=== PATIENT | male | born 1945 | race Caucasian/White ===

== ENCOUNTER 2016-10-15 21:41 | Inpatient (IN) | payer MEDICARE ==
[~2016-10-15] VITALS: Ht 188 cm; Wt 89.8 kg
[2016-10-15 21:41] VITALS: BP_SYST 98
[2016-10-15] MEDS ORDERED: NACL 0.9% 1,000 ML IV SCH ×3 (21:46→22:51)
[2016-10-15 22:15] LABS: BASOPHILS # (AUTO) 0.1 K/uL (0.0-0.2); BASOPHILS % (AUTO) 0.7 % (0.0-2.0); EOSINOPHILS # (AUTO) 0.3 K/uL (0.0-0.4); EOSINOPHILS % (AUTO) 2.5 % (0.0-4.0); HEMOGLOBIN 8.8 g/dL (14.0-18.0); LYMPHOCYTES # (AUTO) 2.5 K/uL (1.0-5.5); LYMPHOCYTES % (AUTO) 20.7 % (20.5-51.5); MEAN CORPUSCULAR HEMOGLOBIN 29 pg (27-31); MEAN CORPUSCULAR HGB CONC 30 % (32-36); MEAN CORPUSCULAR VOLUME 95 fL (79.0-98.0); MONOCYTES # (AUTO) 1.3 K/uL (0.0-1.0); MONOCYTES % (AUTO) 10.8 % (1.7-9.3); NEUTROPHILS # (AUTO) 7.8 K/uL (1.8-7.7); NEUTROPHILS % (AUTO) 65.3 % (40.0-70.0); PLATELET COUNT (AUTO) 164 K/uL (130-430); RED BLOOD CELL COUNT(AUTO) 3.04 MIL/uL (4.2-6.2); RED CELL DISTRIBUTION WIDTH 19.8 % (9.0-15.0)
[2016-10-15] MEDS ORDERED: ONDANSETRON HCL 4 MG/2 ML VIAL IVP ONE (22:15)
[2016-10-15 22:25] LABS: ANION GAP 6 (5-15); CALCIUM 7.8 mg/dL (8.4-11.0); CHLORIDE 105 mmol/L (98-107); CREATININE 3.85 mg/dL (0.55-1.30); GLUCOSE 164 mg/dL (70-99); POTASSIUM 4.7 mmol/L (3.5-5.1); SODIUM SERUM 141 mmol/L (136-145); UREA NITROGEN, BLOOD 26 mg/dL (8-21)
[2016-10-15 22:45] LABS: INR 1.3 (0.80-1.20); PROTHROMBIN TIME 14.6 SECS (9.5-12.5)
[2016-10-15 22:46] LABS: ALANINE AMINOTRANSFERASE 14 U/L (12-78); ALBUMIN 1.9 g/dL (3.4-4.8); ASPARTATE AMINOTRANSFERASE 27 U/L (10-37); TOTAL BILIRUBIN 1.3 mg/dL (0.0-1.0)
[2016-10-15] MEDS ORDERED: LIP40 PO (22:48)
[2016-10-15] MEDS ORDERED: SERT50TA12 PO (22:48)
[2016-10-15] MEDS ORDERED: LORA-258 PO (22:48)
[2016-10-15] MEDS ORDERED: LOSA50TA3 PO (22:48)
[2016-10-15] MEDS ORDERED: ALLO100T PO (22:48)
[2016-10-15] MEDS ORDERED: FURO-149 PO (22:48)
[2016-10-15] MEDS ORDERED: METO25TA6 PO (22:48)
[2016-10-15] MEDS ORDERED: CALC0.258 PO (22:48)
[2016-10-15] MEDS ORDERED: [UNRECOGNIZED DRUG - CODE] PO (22:50)
[2016-10-15] MEDS ORDERED: FAMO20TA8 PO (22:50)
[2016-10-15] MEDS ORDERED: ASPI-1063 PO (22:51)
[2016-10-15] MEDS ORDERED: NOREPINEPHRINE BITARTRATE IV ONE (23:30)
[2016-10-15] MEDS ORDERED: NS IV ONE (23:30)
[2016-10-15] MEDS ORDERED: NOREPINEPHRINE 4 MG/4 ML VIAL IV ONE (23:43)
[2016-10-16] VITALS (27 sets, daily range): BP systolic 62–137
[2016-10-16] MEDS ORDERED: PANTOPRAZOLE SODIUM 40 MG/VIAL (PROTONIX) IVP ONE
[2016-10-16] MEDS ORDERED: PANTOPRAZOLE SODIUM 40 MG/VIAL (PROTONIX) ONE ×3 (00:06→04:56)
[2016-10-16] MEDS ORDERED: PANTOPRAZOLE SODIUM 40 MG in NS 50 ML IV SCH ×4 (01:00→04:30)
[2016-10-16 01:24] LABS: BASOPHILS # (AUTO) 0.2 K/uL (0.0-0.2); BASOPHILS % (AUTO) 1.1 % (0.0-2.0); EOSINOPHILS # (AUTO) 0.2 K/uL (0.0-0.4); EOSINOPHILS % (AUTO) 1.6 % (0.0-4.0); HEMATOCRIT 29.6 % (36-54); HEMOGLOBIN 9.1 g/dL (14.0-18.0); LYMPHOCYTES # (AUTO) 3.1 K/uL (1.0-5.5); LYMPHOCYTES % (AUTO) 22.4 % (20.5-51.5); MEAN CORPUSCULAR HEMOGLOBIN 30 pg (27-31); MEAN CORPUSCULAR HGB CONC 31 % (32-36); MEAN CORPUSCULAR VOLUME 96 fL (79.0-98.0); MONOCYTES # (AUTO) 1.4 K/uL (0.0-1.0); NEUTROPHILS # (AUTO) 8.9 K/uL (1.8-7.7); NEUTROPHILS % (AUTO) 64.9 % (40.0-70.0); PLATELET COUNT (AUTO) 177 K/uL (130-430); RED BLOOD CELL COUNT(AUTO) 3.09 MIL/uL (4.2-6.2); RED CELL DISTRIBUTION WIDTH 20.2 % (9.0-15.0); WHITE BLOOD COUNT (AUTO) 13.8 K/uL (4.8-10.8)
[2016-10-16] MEDS ORDERED: DIPHENHYDRAMINE INJ 50 MG/ML VIAL IVP PRN (01:30)
[2016-10-16] MEDS ORDERED: ACETAMINOPHEN 325 MG TABLET PO PRN (01:30)
[2016-10-16] MEDS ORDERED: LEVOFLOXACIN 500 MG/D5W 100 ML IV ONE ×2 (01:45→02:25)
[2016-10-16] MEDS ORDERED: VANCOMYCIN HCL 1 GM/NS PREMIX 250 ML IV ONE (01:45)
[2016-10-16] MEDS ORDERED: VANCOMYCIN HCL 1000 MG/VIAL IV ONE (02:25)
[2016-10-16] MEDS: INSULIN REGULAR, HUMAN 100 UNITS/ML, 10 ML VIAL (novoLIN R) SUBCUT PRN ×4 (06:40→21:15)
[2016-10-16] MEDS ORDERED: DEXTROSE 50%-WATER 50 ML DISP.SYRIN IVP PRN (06:45)
[2016-10-16] MEDS ORDERED: GLUCOSE 15 GM GEL (in 37.5 GM TUBE) PO PRN ×2 (06:45)
[2016-10-16] MEDS ORDERED: NOREPINEPHRINE 4 MG/4 ML VIAL IV ONE (07:10)
[2016-10-16] MEDS: METOPROLOL TARTRATE 25 MG TABLET PO SCH ×2 (09:00→20:19)
[2016-10-16] MEDS: PANTOPRAZOLE SODIUM 40 MG in NS 50 ML IV SCH ×4 (09:08→20:20)
[2016-10-16] MEDS: ATORVASTATIN 20 MG TABLET PO SCH (09:10)
[2016-10-16] MEDS: FUROSEMIDE 40 MG TABLET PO SCH (09:13)
[2016-10-16] MEDS: SERTRALINE HCL 50 MG TABLET PO SCH (09:14)
[2016-10-16] MEDS: ALLOPURINOL 100 MG TABLET (ZYLOPRIM) PO SCH (09:14)
[2016-10-16 09:15] LABS: HEMATOCRIT 30.9 % (36-54); HEMOGLOBIN 9.4 g/dL (14.0-18.0); MEAN CORPUSCULAR HEMOGLOBIN 30 pg (27-31); MEAN CORPUSCULAR HGB CONC 31 % (32-36); MEAN CORPUSCULAR VOLUME 97 fL (79.0-98.0); PLATELET COUNT (AUTO) 208 K/uL (130-430); RED BLOOD CELL COUNT(AUTO) 3.18 MIL/uL (4.2-6.2); RED CELL DISTRIBUTION WIDTH 20.1 % (9.0-15.0)
[2016-10-16 09:23] LABS: ANION GAP 14 (5-15); CALCIUM 8.3 mg/dL (8.4-11.0); CHLORIDE 103 mmol/L (98-107); CREATININE 4.19 mg/dL (0.55-1.30); GLUCOSE 191 mg/dL (70-99); PHOSPHORUS 5.2 mg/dL (2.7-4.5); POTASSIUM 5.6 mmol/L (3.5-5.1); SODIUM SERUM 138 mmol/L (136-145); UREA NITROGEN, BLOOD 38 mg/dL (8-21)
[2016-10-16] MEDS ORDERED: FUROSEMIDE 40 MG/4 ML VIAL IVP ONE (10:45)
[2016-10-16 10:57] LABS: ATYPICAL LYMPHOCYTES % 0 % (0-0); BAND % (MANUAL) 0 % (0-6); BASOPHILS % (MANUAL) 0 % (0-2); EOSINOPHILS % (MANUAL) 0 % (0-7); LYMPHOCYTES % (MANUAL) 27 % (20-46); MONOCYTES % (MANUAL) 12 % (0-11)
[2016-10-16] MEDS: NOREPINEPHRINE BITARTRATE 8 MG in NS 242 ML IV PRN ×2 (12:10→19:41)
[2016-10-16] MEDS: CEFEPIME 1 GM in D5W 50 ML IV SCH (13:49)
[2016-10-16] MEDS: ALBUTEROL SULFATE 0.083% 2.5 MG/3 ML VIAL.NEB INH SCH ×3 (14:25→23:25)
[2016-10-16] MEDS ORDERED: ALBUMIN HUMAN 25% 100 ML IV ONE ×2 (14:30→14:45)
[2016-10-16] MEDS ORDERED: HEPARIN SODIUM, PORCINE 10,000 UNITS/ 10 ML VIAL MC ONE (16:30)
[2016-10-16] MEDS: VANCOMYCIN HCL 1,250 MG in NS 250 ML IV SCH (17:45)
[2016-10-16] MEDS: FLUCONAZOLE 200 mg/ NS 100 ML IV SCH (18:49)
[2016-10-16] MEDS ORDERED: EPOETIN ALFA 10,000 UNITS/ML VIAL IVP ONE (19:00)
[2016-10-16] MEDS: TEMAZEPAM 7.5 MG CAPSULE PO PRN (21:07)
[2016-10-16] MEDS: CALCITRIOL 0.25 MCG CAPSULE PO SCH (22:43)
[2016-10-17] VITALS (25 sets, daily range): BP systolic 80–126
[2016-10-17] MEDS: ALBUTEROL SULFATE 0.083% 2.5 MG/3 ML VIAL.NEB INH SCH ×6 (03:00→22:54)
[2016-10-17] MEDS: NOREPINEPHRINE BITARTRATE 8 MG in NS 242 ML IV PRN ×4 (03:54→14:22)
[2016-10-17] MEDS: PANTOPRAZOLE SODIUM 40 MG in NS 50 ML IV SCH ×5 (03:55→23:51)
[2016-10-17 05:12] LABS: HEPATITIS B SURFACE AG Negative (Negative); HEPATITIS C VIRUS AB <0.1 s/co ratio (0.0-0.9)
[2016-10-17] MEDS: INSULIN REGULAR, HUMAN 100 UNITS/ML, 10 ML VIAL (novoLIN R) SUBCUT PRN ×3 (06:14→20:28)
[2016-10-17 06:26] LABS: BASOPHILS # (AUTO) 0.1 K/uL (0.0-0.2); EOSINOPHILS # (AUTO) 0.1 K/uL (0.0-0.4); EOSINOPHILS % (AUTO) 0.7 % (0.0-4.0); HEMATOCRIT 26.1 % (36-54); HEMOGLOBIN 7.8 g/dL (14.0-18.0); LYMPHOCYTES # (AUTO) 3.2 K/uL (1.0-5.5); LYMPHOCYTES % (AUTO) 25.4 % (20.5-51.5); MEAN CORPUSCULAR HEMOGLOBIN 29 pg (27-31); MEAN CORPUSCULAR HGB CONC 30 % (32-36); MEAN CORPUSCULAR VOLUME 97 fL (79.0-98.0); MONOCYTES # (AUTO) 1.9 K/uL (0.0-1.0); MONOCYTES % (AUTO) 15.1 % (1.7-9.3); NEUTROPHILS # (AUTO) 7.1 K/uL (1.8-7.7); NEUTROPHILS % (AUTO) 57.8 % (40.0-70.0); PLATELET COUNT (AUTO) 207 K/uL (130-430); RED BLOOD CELL COUNT(AUTO) 2.71 MIL/uL (4.2-6.2); RED CELL DISTRIBUTION WIDTH 20.8 % (9.0-15.0); WHITE BLOOD COUNT (AUTO) 12.4 K/uL (4.8-10.8)
[2016-10-17 06:56] LABS: ANION GAP 15 (5-15); CALCIUM 8.3 mg/dL (8.4-11.0); CHLORIDE 103 mmol/L (98-107); CREATININE 3.69 mg/dL (0.55-1.30); GLUCOSE 228 mg/dL (70-99); POTASSIUM 3.9 mmol/L (3.5-5.1); SODIUM SERUM 141 mmol/L (136-145); UREA NITROGEN, BLOOD 33 mg/dL (8-21)
[2016-10-17 07:27] LABS: ALANINE AMINOTRANSFERASE 38 U/L (12-78); ALBUMIN 2.8 g/dL (3.4-4.8); ASPARTATE AMINOTRANSFERASE 136 U/L (10-37); TOTAL BILIRUBIN 1.6 mg/dL (0.0-1.0)
[2016-10-17] MEDS: ALLOPURINOL 100 MG TABLET (ZYLOPRIM) PO SCH (08:49)
[2016-10-17] MEDS: ATORVASTATIN 20 MG TABLET PO SCH (08:49)
[2016-10-17] MEDS: CALCITRIOL 0.25 MCG CAPSULE PO SCH (08:49)
[2016-10-17] MEDS: FUROSEMIDE 40 MG TABLET PO SCH (08:50)
[2016-10-17] MEDS: METOPROLOL TARTRATE 25 MG TABLET PO SCH ×2 (08:51→20:21)
[2016-10-17] MEDS: SERTRALINE HCL 50 MG TABLET PO SCH (08:54)
[2016-10-17] MEDS: CEFEPIME 1 GM in D5W 50 ML IV SCH (11:54)
[2016-10-17] MEDS ORDERED: PANTOPRAZOLE SODIUM 80 MG in NS 100 ML IV ONE (12:15)
[2016-10-17] MEDS ORDERED: OCTREOTIDE ACETATE 50 MCG/ML AMP IVP ONE (12:15)
[2016-10-17] MEDS: OCTREOTIDE ACETATE 1,250 MCG in NS 250 ML IV SCH (13:09)
[2016-10-17] MEDS: LORazepam 1 MG TABLET PO PRN (14:14)
[2016-10-17] MEDS ORDERED: ALBUMIN HUMAN 25% 100 ML IV ONE ×2 (15:00→16:00)
[2016-10-17] MEDS: FLUCONAZOLE 200 mg/ NS 100 ML IV SCH (19:59)
[2016-10-17] MEDS: TEMAZEPAM 7.5 MG CAPSULE PO PRN (23:52)
[2016-10-18] VITALS (24 sets, daily range): BP systolic 79–127
[2016-10-18] MEDS: NOREPINEPHRINE BITARTRATE 8 MG in NS 242 ML IV PRN ×3 (02:12→22:10)
[2016-10-18] MEDS: ALBUTEROL SULFATE 0.083% 2.5 MG/3 ML VIAL.NEB INH SCH ×6 (02:23→23:17)
[2016-10-18] MEDS: PANTOPRAZOLE SODIUM 40 MG in NS 50 ML IV SCH ×5 (05:48→19:45)
[2016-10-18 06:36] LABS: BASOPHILS # (AUTO) 0.1 K/uL (0.0-0.2); BASOPHILS % (AUTO) 0.7 % (0.0-2.0); EOSINOPHILS # (AUTO) 0.2 K/uL (0.0-0.4); EOSINOPHILS % (AUTO) 1.5 % (0.0-4.0); HEMATOCRIT 29.5 % (36-54); HEMOGLOBIN 9.4 g/dL (14.0-18.0); LYMPHOCYTES # (AUTO) 2.3 K/uL (1.0-5.5); MEAN CORPUSCULAR HEMOGLOBIN 30 pg (27-31); MEAN CORPUSCULAR HGB CONC 32 % (32-36); MEAN CORPUSCULAR VOLUME 94 fL (79.0-98.0); MONOCYTES # (AUTO) 1.3 K/uL (0.0-1.0); MONOCYTES % (AUTO) 10.7 % (1.7-9.3); NEUTROPHILS # (AUTO) 8.7 K/uL (1.8-7.7); NEUTROPHILS % (AUTO) 69.1 % (40.0-70.0); PLATELET COUNT (AUTO) 159 K/uL (130-430); RED BLOOD CELL COUNT(AUTO) 3.15 MIL/uL (4.2-6.2); RED CELL DISTRIBUTION WIDTH 20.3 % (9.0-15.0); WHITE BLOOD COUNT (AUTO) 12.6 K/uL (4.8-10.8)
[2016-10-18 07:03] LABS: ALANINE AMINOTRANSFERASE 94 U/L (12-78); ALBUMIN 3.4 g/dL (3.4-4.8); ANION GAP 13 (5-15); ASPARTATE AMINOTRANSFERASE 232 U/L (10-37); CALCIUM 9.3 mg/dL (8.4-11.0); CHLORIDE 102 mmol/L (98-107); CREATININE 3.21 mg/dL (0.55-1.30); GLUCOSE 188 mg/dL (70-99); POTASSIUM 3.3 mmol/L (3.5-5.1); SODIUM SERUM 140 mmol/L (136-145); TOTAL BILIRUBIN 2.6 mg/dL (0.0-1.0); UREA NITROGEN, BLOOD 27 mg/dL (8-21)
[2016-10-18] MEDS: CALCITRIOL 0.25 MCG CAPSULE PO SCH (08:40)
[2016-10-18] MEDS: ALLOPURINOL 100 MG TABLET (ZYLOPRIM) PO SCH (08:41)
[2016-10-18] MEDS: LORazepam 1 MG TABLET PO PRN (08:41)
[2016-10-18] MEDS: ATORVASTATIN 20 MG TABLET PO SCH (08:42)
[2016-10-18] MEDS: SERTRALINE HCL 50 MG TABLET PO SCH (08:42)
[2016-10-18] MEDS ORDERED: DIATR MEGLU/DIATRIZ SOD 30 ML SOLUTION PO ONE (08:44)
[2016-10-18] MEDS: FUROSEMIDE 40 MG TABLET PO SCH (08:44)
[2016-10-18] MEDS: METOPROLOL TARTRATE 25 MG TABLET PO SCH ×2 (08:45→21:00)
[2016-10-18] MEDS ORDERED: FUROSEMIDE 40 MG/4 ML VIAL IVP ONE (11:30)
[2016-10-18] MEDS ORDERED: PROMETHAZINE 6.25 MG/ CODEINE 10 MG/ 5 ML PO PRN (11:30)
[2016-10-18] MEDS: INSULIN REGULAR, HUMAN 100 UNITS/ML, 10 ML VIAL (novoLIN R) SUBCUT PRN ×3 (11:45→20:53)
[2016-10-18] MEDS: PIPERACILLIN/TAZO 2.25G/DEX-IS 50 ML IV SCH ×3 (11:50→23:56)
[2016-10-18] MEDS: OCTREOTIDE ACETATE 1,250 MCG in NS 250 ML IV SCH (11:50)
[2016-10-18] MEDS: BALSAM PERU/CASTOR OIL 60 GM OINT...G. TP SCH (15:22)
[2016-10-18] MEDS: VANCOMYCIN HCL 1,250 MG in NS 250 ML IV SCH (16:56)
[2016-10-18] MEDS: FLUCONAZOLE 200 mg/ NS 100 ML IV SCH (18:38)
[2016-10-19] VITALS (41 sets, daily range): BP systolic 59–114
[2016-10-19] MEDS: PANTOPRAZOLE SODIUM 40 MG in NS 50 ML IV SCH ×5 (00:25→19:51)
[2016-10-19] MEDS: ALBUTEROL SULFATE 0.083% 2.5 MG/3 ML VIAL.NEB INH SCH ×6 (02:25→23:28)
[2016-10-19] MEDS: PIPERACILLIN/TAZO 2.25G/DEX-IS 50 ML IV SCH ×3 (05:49→19:28)
[2016-10-19 06:27] LABS: INR 2.1 (0.80-1.20); PROTHROMBIN TIME 23.7 SECS (9.5-12.5)
[2016-10-19] MEDS: NOREPINEPHRINE BITARTRATE 8 MG in NS 242 ML IV PRN ×2 (06:33→11:49)
[2016-10-19 06:37] LABS: BASOPHILS # (AUTO) 0.1 K/uL (0.0-0.2); BASOPHILS % (AUTO) 0.5 % (0.0-2.0); EOSINOPHILS # (AUTO) 0.2 K/uL (0.0-0.4); EOSINOPHILS % (AUTO) 1.2 % (0.0-4.0); HEMATOCRIT 30.7 % (36-54); HEMOGLOBIN 9.5 g/dL (14.0-18.0); LYMPHOCYTES # (AUTO) 2.8 K/uL (1.0-5.5); LYMPHOCYTES % (AUTO) 19.2 % (20.5-51.5); MEAN CORPUSCULAR HEMOGLOBIN 30 pg (27-31); MEAN CORPUSCULAR HGB CONC 31 % (32-36); MEAN CORPUSCULAR VOLUME 96 fL (79.0-98.0); MONOCYTES # (AUTO) 1.6 K/uL (0.0-1.0); MONOCYTES % (AUTO) 11.2 % (1.7-9.3); NEUTROPHILS # (AUTO) 9.6 K/uL (1.8-7.7); NEUTROPHILS % (AUTO) 67.9 % (40.0-70.0); PLATELET COUNT (AUTO) 142 K/uL (130-430); RED BLOOD CELL COUNT(AUTO) 3.21 MIL/uL (4.2-6.2); RED CELL DISTRIBUTION WIDTH 21.1 % (9.0-15.0)
[2016-10-19 06:53] LABS: ALANINE AMINOTRANSFERASE 131 U/L (12-78); ALBUMIN 3.1 g/dL (3.4-4.8); ANION GAP 16 (5-15); ASPARTATE AMINOTRANSFERASE 275 U/L (10-37); CHLORIDE 102 mmol/L (98-107); CREATININE 4.22 mg/dL (0.55-1.30); GLUCOSE 169 mg/dL (70-99); POTASSIUM 3.5 mmol/L (3.5-5.1); SODIUM SERUM 139 mmol/L (136-145); TOTAL BILIRUBIN 2.9 mg/dL (0.0-1.0); UREA NITROGEN, BLOOD 38 mg/dL (8-21)
[2016-10-19 07:00] LABS: WHITE BLOOD COUNT (AUTO) 14.3 K/uL (4.8-10.8)
[2016-10-19] MEDS: ALLOPURINOL 100 MG TABLET (ZYLOPRIM) PO SCH (09:00)
[2016-10-19] MEDS: SERTRALINE HCL 50 MG TABLET PO SCH (09:00)
[2016-10-19] MEDS: FUROSEMIDE 40 MG TABLET PO SCH (09:00)
[2016-10-19] MEDS: METOPROLOL TARTRATE 25 MG TABLET PO SCH ×2 (09:00→21:13)
[2016-10-19] MEDS: ATORVASTATIN 20 MG TABLET PO SCH (09:00)
[2016-10-19] MEDS: CALCITRIOL 0.25 MCG CAPSULE PO SCH (09:00)
[2016-10-19] MEDS ORDERED: ALBUMIN HUMAN 25% 200 ML IV ONE (09:30)
[2016-10-19] MEDS ORDERED: DOPamine PREMIX 250 ML IV PRN (12:00)
[2016-10-19] MEDS ORDERED: DOPamine PREMIX 250 ML IV ONE ×2 (12:11→16:34)
[2016-10-19] MEDS ORDERED: SUCCINYLCHOLINE CHLORIDE 20 MG/ML(QUELICIN) IVP ONE (14:42)
[2016-10-19] MEDS ORDERED: ETOMIDATE 20 MG/ 10 ML VIAL (AMIDATE) IVP ONE (14:42)
[2016-10-19] MEDS ORDERED: PHYTONADIONE 10 MG/ML AMP SUBCUT ONE (14:45)
[2016-10-19] MEDS ORDERED: LIDOCAINE 2%, 20 ML MDV ONE (15:29)
[2016-10-19] MEDS ORDERED: NOREPINEPHRINE BITARTRATE 8 MG in NS 242 ML IV PRN (15:30)
[2016-10-19] MEDS ORDERED: NOREPINEPHRINE BITARTRATE 16 MG in NS 234 ML IV PRN (15:30)
[2016-10-19] MEDS ORDERED: COMMUNICATION ORDER XX ONE (15:45)
[2016-10-19] MEDS: PROPOFOL DRIP 100 ML IV PRN ×2 (16:05→19:54)
[2016-10-19] MEDS: FLUCONAZOLE 200 mg/ NS 100 ML IV SCH (19:27)
[2016-10-19] MEDS: BALSAM PERU/CASTOR OIL 60 GM OINT...G. TP SCH (20:03)
[2016-10-19] MEDS: metroNIDAZOLE 250 mg/NS 50 ML IV SCH (21:19)
[2016-10-20] VITALS (26 sets, daily range): BP systolic 44–95
[2016-10-20] MEDS: PANTOPRAZOLE SODIUM 40 MG in NS 50 ML IV SCH ×2 (01:25→06:04)
[2016-10-20] MEDS: PROPOFOL DRIP 100 ML IV PRN (03:10)
[2016-10-20] MEDS: D5W IV PRN ×3 (03:38→18:38)
[2016-10-20] MEDS: DOPAMINE HCL IV PRN ×3 (03:38→18:38)
[2016-10-20] MEDS: ALBUTEROL SULFATE 0.083% 2.5 MG/3 ML VIAL.NEB INH SCH ×5 (03:39→20:04)
[2016-10-20] MEDS: PIPERACILLIN/TAZO 2.25G/DEX-IS 50 ML IV SCH ×4 (05:17→18:39)
[2016-10-20] MEDS: metroNIDAZOLE 250 mg/NS 50 ML IV SCH ×2 (05:29→14:00)
[2016-10-20] MEDS: PHENYLEPHRINE HCL 30 MG in NS 247 ML IV PRN ×2 (07:56→11:20)
[2016-10-20 08:13] LABS: BASOPHILS # (AUTO) 0.3 K/uL (0.0-0.2); EOSINOPHILS % (AUTO) 0.2 % (0.0-4.0); HEMATOCRIT 30.6 % (36-54); HEMOGLOBIN 9.4 g/dL (14.0-18.0); LYMPHOCYTES # (AUTO) 1.6 K/uL (1.0-5.5); LYMPHOCYTES % (AUTO) 10.4 % (20.5-51.5); MEAN CORPUSCULAR HEMOGLOBIN 30 pg (27-31); MEAN CORPUSCULAR HGB CONC 31 % (32-36); MEAN CORPUSCULAR VOLUME 97 fL (79.0-98.0); MONOCYTES # (AUTO) 0.6 K/uL (0.0-1.0); MONOCYTES % (AUTO) 3.8 % (1.7-9.3); NEUTROPHILS # (AUTO) 12.9 K/uL (1.8-7.7); NEUTROPHILS % (AUTO) 83.6 % (40.0-70.0); PLATELET COUNT (AUTO) 86 K/uL (130-430); RED BLOOD CELL COUNT(AUTO) 3.16 MIL/uL (4.2-6.2); RED CELL DISTRIBUTION WIDTH 21.2 % (9.0-15.0); WHITE BLOOD COUNT (AUTO) 15.4 K/uL (4.8-10.8)
[2016-10-20] MEDS: FUROSEMIDE 40 MG TABLET PO SCH (08:15)
[2016-10-20] MEDS: CALCITRIOL 0.25 MCG CAPSULE PO SCH (08:16)
[2016-10-20] MEDS: ALLOPURINOL 100 MG TABLET (ZYLOPRIM) PO SCH (08:16)
[2016-10-20] MEDS: ATORVASTATIN 20 MG TABLET PO SCH (08:17)
[2016-10-20] MEDS: METOPROLOL TARTRATE 25 MG TABLET PO SCH (08:18)
[2016-10-20] MEDS: SERTRALINE HCL 50 MG TABLET PO SCH (08:18)
[2016-10-20 08:27] LABS: ALANINE AMINOTRANSFERASE 214 U/L (12-78); ANION GAP 31 (5-15); ASPARTATE AMINOTRANSFERASE 643 U/L (10-37); CALCIUM 8.4 mg/dL (8.4-11.0); CHLORIDE 98 mmol/L (98-107); CREATININE 3.64 mg/dL (0.55-1.30); GLUCOSE 131 mg/dL (70-99); PHOSPHORUS 6.5 mg/dL (2.7-4.5); POTASSIUM 3.8 mmol/L (3.5-5.1); SODIUM SERUM 137 mmol/L (136-145); TOTAL BILIRUBIN 4.4 mg/dL (0.0-1.0); UREA NITROGEN, BLOOD 27 mg/dL (8-21)
[2016-10-20 08:29] LABS: INR 3.4 (0.80-1.20)
[2016-10-20 08:43] LABS: PROTHROMBIN TIME 38.3 SECS (9.5-12.5)
[2016-10-20] MEDS ORDERED: PANTOPRAZOLE SODIUM 40 MG/VIAL (PROTONIX) IVP SCH (09:00)
[2016-10-20] MEDS ORDERED: SODIUM BICARBONATE 4% (NEUT) 5 ML VIAL INJ ONE ×2 (09:45→10:30)
[2016-10-20] MEDS ORDERED: SODIUM BICARBONATE 8.4% JECT 50 MEQ/50 ML SYRINGE ONE ×3 (09:50→10:40)
[2016-10-20] MEDS: BALSAM PERU/CASTOR OIL 60 GM OINT...G. TP SCH (09:56)
[2016-10-20] MEDS ORDERED: ATROPINE SULFATE 1 MG/10 ML SYRINGE IVP ONE ×2 (10:50→15:44)
[2016-10-20] MEDS ORDERED: SODIUM BICARBONATE 8.4% JECT 150 MEQ in D5W 1,000 ML IV SCH (11:00)
[2016-10-20] MEDS ORDERED: PHENYLEPHRINE HCL 10 MG/ML VIAL (NEOSYNEPHRINE) ONE (11:22)
[2016-10-20] MEDS ORDERED: NS IV SCH (14:15)
[2016-10-20] MEDS ORDERED: PHENYLEPHRINE HCL IV SCH (14:15)
[2016-10-20] MEDS ORDERED: VANCOMYCIN HCL 1,500 MG in NS 250 ML IV SCH (15:45)
[2016-10-20] MEDS ORDERED: EPINEPHrine JECT 2 MG in NS 230 ML IV PRN (16:00)
[2016-10-20] MEDS ORDERED: EPINEPHrine 1 MG/ML AMP IVP ONE (16:00)
[2016-10-20] MEDS ORDERED: SODIUM BICARBONATE 8.4% JECT 50 MEQ/50 ML SYRINGE IVP ONE (16:00)
[2016-10-20] MEDS ORDERED: EPINEPHrine JECT 1 MG/10 ML SYR IVP ONE (16:00)
[2016-10-20] MEDS ORDERED: EPINEPHrine 1 MG/ML AMP ONE (16:09)
[2016-10-20] MEDS ORDERED: EPINEPHrine JECT 1 MG/10 ML SYR ONE (16:09)
[2016-10-20] MEDS: FLUCONAZOLE 200 mg/ NS 100 ML IV SCH (16:42)
[2016-10-20] MEDS: ATROPINE SULFATE 1 MG/10 ML SYRINGE IVP PRN ×2 (17:13→20:23)
[2016-10-20] MEDS: DEXTROSE 50%-WATER 50 ML DISP.SYRIN IVP PRN ×2 (17:17→20:26)
== END 2016-10-20 23:12 | disposition expired | DRG 871 ==
LOC: SED 21:41 → SIC 23:52
PROVIDERS: ADMIT Internal Medicine; ATTEND Internal Medicine
PROC: 5A1D60Z (ICD-10-PCS; 2016-10-16)
PROC: 30233N1 Transfusion of Nonautologous Red Blood Cells into Peripheral Vein, Percutaneous Approach (ICD-10-PCS; 2016-10-17)
PROC: 0BH18EZ Insertion of Endotracheal Airway into Trachea, Via Natural or Artificial Opening Endoscopic (ICD-10-PCS; principal; 2016-10-19)
PROC: 5A1945Z Respiratory Ventilation, 24-96 Consecutive Hours (ICD-10-PCS; 2016-10-19)
PROC: 06HM33Z Insertion of Infusion Device into Right Femoral Vein, Percutaneous Approach (ICD-10-PCS; 2016-10-19)
PROC: B54BZZA Ultrasonography of Right Lower Extremity Veins, Guidance (ICD-10-PCS; 2016-10-19)
DX: A41.9 Sepsis, unspecified organism (principal); J96.00 Acute respiratory failure, unspecified whether with hypoxia or hypercapnia; I21.4 Non-ST elevation (NSTEMI) myocardial infarction; E43 Unspecified severe protein-calorie malnutrition; R65.21 Severe sepsis with septic shock; N18.6 End stage renal disease; I50.41 Acute combined systolic (congestive) and diastolic (congestive) heart failure; J18.9 Pneumonia, unspecified organism; E87.2 Acidosis; D62 Acute posthemorrhagic anemia; I13.2 Hypertensive heart and chronic kidney disease with heart failure and with stage 5 chronic kidney disease, or end stage renal disease; I46.9 Cardiac arrest, cause unspecified; I34.0 Nonrheumatic mitral (valve) insufficiency; K52.9 Noninfective gastroenteritis and colitis, unspecified; J40 Bronchitis, not specified as acute or chronic; E11.40 Type 2 diabetes mellitus with diabetic neuropathy, unspecified; E11.22 Type 2 diabetes mellitus with diabetic chronic kidney disease; E78.00 Pure hypercholesterolemia, unspecified; L89.899 Pressure ulcer of other site, unspecified stage; M10.9 Gout, unspecified; I25.10 Atherosclerotic heart disease of native coronary artery without angina pectoris; G25.81 Restless legs syndrome; R00.1 Bradycardia, unspecified; E87.5 Hyperkalemia; L08.9 Local infection of the skin and subcutaneous tissue, unspecified; D63.8 Anemia in other chronic diseases classified elsewhere; F32.9 Major depressive disorder, single episode, unspecified; E11.51 Type 2 diabetes mellitus with diabetic peripheral angiopathy without gangrene; K59.09 Other constipation; Z83.3 Family history of diabetes mellitus; Z88.5 Allergy status to narcotic agent; Z74.01 Bed confinement status; Z79.899 Other long term (current) drug therapy; Z68.25 Body mass index [BMI] 25.0-25.9, adult; Z79.82 Long term (current) use of aspirin; Z99.2 Dependence on renal dialysis; Z95.1 Presence of aortocoronary bypass graft
CPT/HCPCS: 36415; 36600; 71010; 78278-TC; 80048; 80053; 80202-TC; 82803-TC; 82962; 83880; 84100-TC; 84484; 85007; 85025; 85027; 85610-TC; 85730-TC; 86706; 86738; 86803; 86886; 86900; 86901; 86920; 87040-TC; 87070-TC; 87081; 87205-TC; 87340; 90935; 90937; 93005; 93306; 94002; 94003; 94640; 96361; 96365; 96375; 99291; A6209; A9560; C1751; C9113; J0171; J0330; J0461; J0692; J0885; J1265; J1450; J1644; J1815; J1940; J1956; J2001; J2354; J2370; J2405; J2543; J2704; J3370; J3430; J3490; J7030; J7040; J7050; J7060; P9021; P9046; Q9964